=== PATIENT | male | born 1960 | race Caucasian/White ===

== ENCOUNTER 2017-06-28 07:32 | Emergency (ER) | payer OTHER ==
[2017-06-28 07:42] VITALS: TEMP 98.3; BMI 24.3
[2017-06-28] MEDS ORDERED: KETOROLAC TROMETHAMINE 60 MG/2 ML VIAL IM ONE (08:03)
[2017-06-28] MEDS ORDERED: CYCLOBENZAPRINE HCL 10 MG TABLET (FP) PO ONE (08:03)
--- NOTE | 2017-06-28 08:03 | PDOC ---
History of Present Illness - General Chief Complaint: Pain, Acute Stated Complaint: PAIN TO RIGHT SHOULDER Time Seen by Provider: 06/28/17 07:57 - History of Present Illness Initial Comments: 06/28/17 08:22 Chief complaint: Pain right shoulder History of present illness: Patient states that he twisted suddenly while lying on the couch last night, resulting in severe pain in the area of the right scapula and trapezius. Pain is severe and persistent. Review of systems: No fever/chills, URI symptoms, sore throat, cough, chest pain , shortness of breath, abdominal pain, nausea, vomiting, diarrhea, visual or focal neurologic symptoms, unsteadiness of gait. The patient has no pain that radiates to the arm and no distal numbness tingling pain or weakness of the right upper extremity Past medical history: High blood pressure maintained on medication Social/family history reviewed and noncontributory Physical exam: Alert and oriented well-developed well-nourished no acute distress cooperative Afebrile, vital signs stable Examination of the right shoulder and scapula reveals no point tenderness or deformity. There is full range of motion with minimal pain. Pulses are full to the right upper extremity. No distal sensory or motor deficits. The patient indicates pain over the right trapezius and the medial border of the right scapula. Neck is without point tenderness or deformity, full range of motion without pain Lungs are clear with full breath sounds throughout bilaterally. No chest wall rib cage tenderness or deformity CV regular without murmur rub or gallop pulses full and symmetric no JVD or edema no bruit Abdomen soft nontender without mass or organomegaly no CVAT Neurological intact. Cranial nerves intact. Strength full and symmetric. No focal sensory or motor deficits. Impression: Acute muscle strain, possible nerve impingement. Plan: X-ray and further orthopedic management depending on results. Symptomatic pain management. Past History - Past Medical History Allergies/Adverse Reactions: Allergies Allergy/AdvReac Type Severity Reaction Status Date / Time No Known Allergies Allergy Verified 06/28/17 07:35 Home Medications: Ambulatory Orders Amlodipine Besylate [Norvasc -] 10 mg PO DAILY 06/28/17 Cyclobenzaprine HCl [Flexeril] 10 mg PO TID #10 tablet 06/28/17 Ibuprofen 800 mg PO TID #15 tablet 06/28/17 Anemia: No Asthma: No Cancer: No Cardiac Disorders: No CVA: No COPD: No CHF: No Dementia: No Diabetes: No GI Disorders: No Disorders: No HTN: Yes Hypercholesterolemia: No Liver Disease: No Seizures: No Thyroid Disease: No - Surgical History Abdominal Surgery: No Appendectomy: No Cardiac Surgery: No Cholecystectomy: No Lung Surgery: No Neurologic Surgery: No Orthopedic Surgery: Yes (RIGHT SHOULDER ROTATOR 2005) - Suicide/Smoking/Psychosocial Hx Smoking History: Current every day smoker Have you smoked in the past 12 months: Yes Number of Cigarettes Smoked Daily: 12 Information on smoking cessation initiated: Yes 'Breaking Loose' booklet given: 06/28/17 Hx Alcohol Use: Yes (DAILY) Drug/Substance Use Hx: No Substance Use Type: Alcohol Hx Substance Use Treatment: No *Physical Exam - Vital Signs Last Vital Signs Temp Pulse Resp BP Pulse Ox 98.3 F 110 H 18 180/106 96 06/28/17 07:36 06/28/17 07:36 06/28/17 07:36 06/28/17 07:36 06/28/17 07:36 Medical Decision Making - Medical Decision Making 06/28/17 08:40 X-ray: Negative Patient much improved after the administration of Toradol and Flexeril. Continue nystatin medication and follow-up orthopedist in 2-3 days if symptoms persist. Fully ambulatory and in no significant pain or other distress upon discharge to follow-up as directed *DC/Admit/Observation/Transfer Diagnosis at time of Disposition: Musculoskeletal pain - Discharge Dispostion Disposition: HOME Condition at time of disposition: Improved Admit: No - Prescriptions Prescriptions: Cyclobenzaprine HCl [Flexeril] 10 mg PO TID #10 tablet Ibuprofen 800 mg PO TID #15 tablet - Referrals Referrals: Jasper Olson MD [Staff Physician] - 1 week - Patient Instructions Printed Discharge Instructions: How to Use a Sling, DI for Musculoskeletal Pain , Smoking Cessation - Post Discharge Activity Forms/Work/School Notes: Back to Work
[2017-06-28] MEDS ORDERED: CYCLOBENZAPRINE HCL 10 MG TABLET (FP) ONE (08:17)
[2017-06-28] MEDS ORDERED: KETOROLAC TROMETHAMINE 60 MG/2 ML VIAL ONE (08:17)
[2017-06-28 08:49] VITALS: BP 155/93; PULSE 81
== END 2017-06-28 09:08 | disposition home or self-care (01) ==
LOC: FER 07:32
PROC: 3E0233Z Introduction of Anti-inflammatory into Muscle, Percutaneous Approach (ICD-10-PCS; principal; 2017-06-28)
DX: M79.1 Myalgia (principal); F17.210 Nicotine dependence, cigarettes, uncomplicated; I10 Essential (primary) hypertension
CPT/HCPCS: 73030-TC-RT-FY; 99281-25

== ENCOUNTER 2021-04-10 08:28 | Emergency (ER) | payer OTHER ==
[2021-04-10 08:38] VITALS: BP 155/96; PULSE 114; TEMP 98.2; BMI 25.3
[2021-04-10] MEDS ORDERED: ACETAMINOPHEN 325 MG TABLET (FP) PO ONE (09:06)
[2021-04-10] MEDS ORDERED: ACETAMINOPHEN 325 MG TABLET (FP) ONE (09:11)
[2021-04-10] MEDS ORDERED: IBUPROFEN 400 MG TABLET (FP) PO ONE ×2 (09:49→10:06)
== END 2021-04-10 10:19 | disposition home or self-care (01) ==
LOC: FER 08:28
DX: M25.562 Pain in left knee (principal); X50.0XXA Overexertion from strenuous movement or load, initial encounter
CPT/HCPCS: 73560-TC-LT-FY; 82962; 99284-25

== ENCOUNTER 2022-06-03 06:05 | Day surgery (SDC) | payer OTHER ==
[2022-05-26 12:36] VITALS: BMI 24.3
[2022-06-03] MEDS ORDERED: CEFAZOLIN 2 GM in DEXTROSE 5%-WATER - 50 ML IVPB ONE (06:30)
[2022-06-03] MEDS ORDERED: SODIUM CHLORIDE 0.9% P/F 10 ML VIAL IJ ONE (07:23)
[2022-06-03] MEDS ORDERED: MIDAZOLAM HCL 2 MG/2 ML SINGLE DOSE VIAL ONE (07:23)
[2022-06-03] MEDS ORDERED: BUPIVACAINE HCL/PF 0.5% (5MG/ML) 10 ML VIAL ONE (07:23)
[2022-06-03] MEDS ORDERED: BUPIVACAINE LIPOSOME/PF (EXPAREL) 266 MG/20 ML VIAL ONE (07:23)
[2022-06-03] MEDS ORDERED: PROPOFOL 60 ML ONE (07:55)
[2022-06-03] MEDS ORDERED: KETOROLAC TROMETHAMINE 30 MG/1 ML VIAL ONE (07:56)
[2022-06-03] MEDS ORDERED: TRANEXAMIC ACID 1000 MG/10 ML VIAL ONE (07:56)
[2022-06-03] MEDS ORDERED: SUCCINYLCHOLINE CHLORIDE 200 MG/10 ML SYRINGE ONE (07:56)
[2022-06-03] MEDS ORDERED: ceFAZolin SODIUM 1 GM VIAL ONE (07:56)
[2022-06-03] MEDS ORDERED: DEXAMETHASONE SOD PHOSPHATE 4 MG/1 ML VIAL ONE (07:56)
[2022-06-03] MEDS ORDERED: ONDANSETRON 4 MG/2 ML VIAL ONE (07:56)
[2022-06-03] MEDS ORDERED: TRANEXAMIC ACID 1000 MG/10 ML VIAL IVPUSH ONE (08:00)
[2022-06-03] MEDS ORDERED: oxyCODONE HCL 5 MG TABLET PO PRN ×2 (10:01)
[2022-06-03] MEDS ORDERED: PROMETHAZINE HCL 25 MG/1 ML VIAL IVPUSH PRN (10:01)
[2022-06-03] MEDS ORDERED: ONDANSETRON 4 MG/2 ML VIAL IVPUSH PRN ×2 (10:01→10:05)
[2022-06-03] MEDS ORDERED: MAGNESIUM HYDROX 2400MG/30ML ORAL SUSPENSION 30 ML CUP PO PRN (10:05)
[2022-06-03] MEDS ORDERED: MAG HYDROX/AL HYDROX/SIMETH 30 ML UNIT-DOSE CUP PO PRN (10:05)
[2022-06-03] MEDS ORDERED: ACETAMINOPHEN 500 MG TABLET (FP) PO SCH (10:15)
[2022-06-03] MEDS ORDERED: LACTATED RINGERS SOLUTION 1,000 ML IV SCH (10:15)
[2022-06-03] MEDS ORDERED: SODIUM CHLORIDE 1,000 ML IV SCH (10:15)
[2022-06-03] MEDS: ACETAMINOPHEN 500 MG TABLET (FP) PO SCH ×2 (12:38→21:17)
[2022-06-03] MEDS: INSULIN SLIDING SCALE (NOVOLOG) 1 VIAL SQ SCH ×3 (12:46→21:39)
[2022-06-03] MEDS: CEFAZOLIN 1 GM in DEXTROSE 5%-WATER - 50 ML IVPB SCH ×2 (17:12→23:37)
[2022-06-03 20:52] VITALS: RESP 18
[2022-06-03] MEDS: SENNOSIDES/DOCUSATE COMBO (SENNA PLUS) TABLET (UD) PO SCH (21:34)
[2022-06-03] MEDS: ASPIRIN 81 MG CHEWABLE TABLETS PO SCH (21:34)
[2022-06-03] MEDS: CELECOXIB 200 MG CAPSULE PO SCH (21:34)
[2022-06-04] MEDS: ACETAMINOPHEN 500 MG TABLET (FP) PO SCH ×2 (02:59→11:40)
[2022-06-04] MEDS: INSULIN SLIDING SCALE (NOVOLOG) 1 VIAL SQ SCH ×2 (06:20→11:40)
[2022-06-04 08:45] LABS: HEMATOCRIT 42.2 % (35.4-49); HEMOGLOBIN 14.5 G/dL (11.7-16.9); MCH 32.6 pg (25.7-33.7); MCHC 34.4 g/dl (32.0-35.9); MEAN CELL VOLUME 94.9 fl (80-96); MEAN PLT VOLUME 9.1 fl (7.5-11.1); PLATELET COUNT 191.6 10^3/uL (134-434); RBC 4.45 10^6/uL (4.00-5.60); RDW 13.4 % (11.9-15.9)
[2022-06-04 08:47] LABS: CALCIUM 8.7 mg/dl (8.5-10); CREATININE 0.8 mg/dl (0.55-1.3)
[2022-06-04 09:12] VITALS: BP 139/78; PULSE 101; TEMP 98.5
[2022-06-04] MEDS: CELECOXIB 200 MG CAPSULE PO SCH (09:18)
[2022-06-04] MEDS: ASPIRIN 81 MG CHEWABLE TABLETS PO SCH (09:18)
[2022-06-04] MEDS: SENNOSIDES/DOCUSATE COMBO (SENNA PLUS) TABLET (UD) PO SCH (09:18)
[2022-06-04] MEDS ORDERED: LISINOPRIL 10 MG TABLET PO SCH (10:00)
[2022-06-04] MEDS ORDERED: PATIENT'S OWN MEDICATION (NON-FORMULARY) (Amlodipine Besylate/Benazepril [Amlodipine-Benaz PO SCH (10:00)
[2022-06-04] MEDS ORDERED: PANTOPRAZOLE 40 MG TABLET PO SCH (10:00)
[2022-06-04] MEDS ORDERED: glipiZIDE 5 MG TABLET (FP) PO ONE (10:00)
[2022-06-04] MEDS ORDERED: amLODIPine BESYLATE 5 MG TABLET (FP) PO SCH (10:00)
== END 2022-06-04 12:02 | disposition home or self-care (01) ==
LOC: FASUSAT 06:05 → FM/S 11:30 → FASUSAT 06-04 12:02
PROVIDERS: ATTEND Orthopaedic Surgery
PROC: 0SRD0J9 Replacement of Left Knee Joint with Synthetic Substitute, Cemented, Open Approach (ICD-10-PCS; principal; 2022-06-03 08:10)
DX: M17.12 Unilateral primary osteoarthritis, left knee (principal)
CPT/HCPCS: 27447; C1776; 36415; 73560-TC-LT-FY; 80048; 82962; 85027; 94760; 97010-GP; 97116-GP; 97161-GP; C1889

== ENCOUNTER 2023-04-28 08:29 | Emergency (ER) | payer OTHER ==
[2023-04-28] MEDS ORDERED: SODIUM CHLORIDE 0.9% 500 ML INFUS.BAG IV ONE ×2 (08:51→09:22)
[2023-04-28] MEDS ORDERED: ACETAMINOPHEN 1000 MG/100 ML BAG IVPB ONE (08:51)
[2023-04-28 09:09] VITALS: BP 149/92; PULSE 123; RESP 16; TEMP 98; BMI 50.1
[2023-04-28] MEDS ORDERED: ACETAMINOPHEN INJECTION 100 ML IVPB ONE (09:16)
[2023-04-28] MEDS ORDERED: IBUPROFEN 600 MG TABLET (FP) PO ONE (09:16)
[2023-04-28 09:55] LABS: HEMATOCRIT 47.9 % (35.4-49); HEMOGLOBIN 15.8 G/dL (11.7-16.9); MCH 29.6 pg (25.7-33.7); MEAN CELL VOLUME 89.7 fl (80-96); PLATELET COUNT 233.4 10^3/uL (134-434); RBC 5.34 10^6/uL (4.00-5.60); WHITE BLOOD COUNT 10.1 10^3/uL (4.0-10.8)
[2023-04-28 09:58] LABS: PLATELET ESTIMATE ADEQUATE
[2023-04-28 10:27] LABS: ALBUMIN 4.3 g/dl (3.4-5.0); BILIRUBIN,TOTAL 0.8 mg/dl (0.2-1); CALCIUM 10.4 mg/dl (8.5-10.1); CREATININE 0.9 mg/dl (0.6-1.3); POTASSIUM 4.2 mmol/L (3.5-5.1); TOT PROT 7.4 g/dl (6.4-8.2)
== END 2023-04-28 13:50 | disposition home or self-care (01) ==
LOC: FER 08:29
PROC: 3E033NZ Introduction of Analgesics, Hypnotics, Sedatives into Peripheral Vein, Percutaneous Approach (ICD-10-PCS; principal; 2023-04-28)
DX: R10.31 Right lower quadrant pain (principal); K57.92 Diverticulitis of intestine, part unspecified, without perforation or abscess without bleeding
CPT/HCPCS: 36415; 71046-TC-FY; 74177-TC; 80053; 81003; 81015; 82550; 83690; 84484; 85027; 87086; 93005; 99285-25; Q9967

== ENCOUNTER 2023-07-14 07:47 | Emergency (ER) | payer OTHER ==
[2023-07-14] MEDS: MAG HYDROX/AL HYDROX/SIMETH 30 ML UNIT-DOSE CUP PO ONE (08:15)
[2023-07-14] MEDS: SODIUM CHLORIDE 0.9% 500 ML INFUS.BAG IV ONE (08:15)
[2023-07-14] MEDS: ONDANSETRON 4 MG/2 ML VIAL IVPUSH ONE (08:25)
[2023-07-14 08:27] VITALS: RESP 18; TEMP 98.5; BMI 24.3
[2023-07-14] MEDS: FAMOTIDINE 20 MG/50 ML IVPB 20 MG/50 ML MG IVPB ONE (08:30)
[2023-07-14] MEDS ORDERED: FAMOTIDINE 20 MG/50 ML IVPB 20 MG/50 ML MG IVPB ONE (08:35)
[2023-07-14] MEDS ORDERED: MAG HYDROX/AL HYDROX/SIMETH 30 ML UNIT-DOSE CUP ONE (08:35)
[2023-07-14] MEDS ORDERED: ONDANSETRON 4 MG/2 ML VIAL ONE (08:35)
[2023-07-14 09:05] LABS: HEMATOCRIT 50.9 % (35.4-49); HEMOGLOBIN 16.5 G/dL (11.7-16.9); MCH 29.5 pg (25.7-33.7); MCHC 32.5 g/dl (32.0-35.9); MEAN CELL VOLUME 90.8 fl (80-96); MEAN PLT VOLUME 8.9 fl (7.5-11.1); PLATELET COUNT 253.2 10^3/uL (134-434); RBC 5.61 10^6/uL (4.00-5.60); RDW 15.1 % (11.9-15.9)
[2023-07-14 09:09] LABS: PLATELET ESTIMATE ADEQUATE
[2023-07-14 09:14] LABS: ALBUMIN 4.4 g/dl (3.4-5.0); BILIRUBIN,TOTAL 0.5 mg/dl (0.2-1); CALCIUM 10.2 mg/dl (8.5-10.1); CREATININE 0.7 mg/dl (0.6-1.3); TOT PROT 7.9 g/dl (6.4-8.2)
[2023-07-14 09:16] LABS: POTASSIUM 4.2 mmol/L (3.5-5.1)
[2023-07-14] MEDS ORDERED: amLODIPine BESYLATE 5 MG TABLET (FP) ONE (09:43)
[2023-07-14] MEDS ORDERED: LISINOPRIL 10 MG TABLET ONE (09:43)
[2023-07-14] MEDS: amLODIPine BESYLATE 5 MG TABLET (FP) PO ONE (09:52)
[2023-07-14] MEDS: LISINOPRIL 10 MG TABLET PO ONE (09:52)
[2023-07-14] MEDS: glipiZIDE 5 MG TABLET (FP) PO ONE (09:52)
[2023-07-14 10:18] VITALS: BP 122/79; PULSE 82
== END 2023-07-14 10:24 | disposition home or self-care (01) ==
LOC: FER 07:47
PROC: 3E033GC Introduction of Other Therapeutic Substance into Peripheral Vein, Percutaneous Approach (ICD-10-PCS; principal; 2023-07-14)
PROC: 3E033GC Introduction of Other Therapeutic Substance into Peripheral Vein, Percutaneous Approach (ICD-10-PCS; 2023-07-14)
DX: R10.10 Upper abdominal pain, unspecified (principal); R11.10 Vomiting, unspecified
CPT/HCPCS: 36415; 80053; 83690; 85027; 99284-25

== ENCOUNTER 2023-07-20 07:41 | Emergency (ER) | payer OTHER ==
[2023-07-20 07:48] VITALS: BP 131/88; RESP 16; TEMP 98.6; BMI 24.3
[2023-07-20] MEDS ORDERED: KETOROLAC TROMETHAMINE 30 MG/1 ML VIAL ONE (08:13)
[2023-07-20] MEDS: KETOROLAC TROMETHAMINE 30 MG/1 ML VIAL IM ONE (08:18)
[2023-07-20 08:30] VITALS: PULSE 109
== END 2023-07-20 08:30 | disposition home or self-care (01) ==
LOC: FER 07:41
PROC: 3E0233Z Introduction of Anti-inflammatory into Muscle, Percutaneous Approach (ICD-10-PCS; principal; 2023-07-20)
DX: M54.2 Cervicalgia (principal); M54.6 Pain in thoracic spine; M25.511 Pain in right shoulder; M62.838 Other muscle spasm
CPT/HCPCS: 99284-25

== ENCOUNTER 2023-09-22 08:34 | Emergency (ER) | payer OTHER ==
[2023-09-22 08:45] VITALS: BP 138/80; PULSE 103; RESP 20; TEMP 98.2; BMI 24.3
[2023-09-22] MEDS ORDERED: FAMOTIDINE 20 MG/50 ML IVPB 20 MG/50 ML MG IVPB ONE (09:48)
[2023-09-22] MEDS: FAMOTIDINE 20 MG/50 ML IVPB 20 MG/50 ML MG IVPB ONE (10:01)
[2023-09-22] MEDS: SODIUM CHLORIDE 1,000 ML IV STA (10:01)
[2023-09-22 10:26] LABS: BASO % 0.5 % (0-2.0); EOS % 0.9 % (0-4.5); HEMATOCRIT 46.1 % (35.4-49); LYMPH % 12.2 % (8-40); MCH 26.7 pg (25.7-33.7); MCHC 32.6 g/dl (32.0-35.9); MEAN PLT VOLUME 8.8 fl (7.5-11.1); MONO % 13.1 % (3.8-10.2); NEUT % 73.3 % (42.8-82.8); PLATELET COUNT 315 10^3/uL (134-434); RBC 5.62 M/mm3 (4.00-5.60); RDW 16.4 % (11.9-15.9); WHITE BLOOD COUNT 10.9 K/mm3 (4.0-10.0)
[2023-09-22 10:43] LABS: POTASSIUM 4.6 mmol/L (3.5-5.1)
[2023-09-22 10:45] LABS: ALBUMIN 3.8 g/dl (3.4-5.0); CALCIUM 10.6 mg/dL (8.5-10.1)
[2023-09-22 10:46] LABS: BLOOD UREA NITROGEN 13.8 mg/dL (7-18); MAGNESIUM 2.5 mg/dL (1.8-2.4)
[2023-09-22 10:50] LABS: BILIRUBIN,TOTAL 0.6 mg/dL (0.2-1); TOT PROT 8.2 g/dl (6.4-8.2)
[2023-09-22] MEDS: LACTATED RINGERS SOLUTION 1,000 ML/1,000 ML INFUS.BAG IV STA (11:45)
[2023-09-22] MEDS: DEXTROSE 5%-LACTATED RINGERS 1,000 ML IV SCH (15:03)
== END 2023-09-22 16:02 | disposition left against medical advice (07) ==
LOC: JER 08:34
PROC: 3E033GC Introduction of Other Therapeutic Substance into Peripheral Vein, Percutaneous Approach (ICD-10-PCS; principal; 2023-09-22)
PROC: 3E0337Z Introduction of Electrolytic and Water Balance Substance into Peripheral Vein, Percutaneous Approach (ICD-10-PCS; 2023-09-22)
PROC: 3E0337Z Introduction of Electrolytic and Water Balance Substance into Peripheral Vein, Percutaneous Approach (ICD-10-PCS; 2023-09-22)
DX: K85.20 Alcohol induced acute pancreatitis without necrosis or infection (principal); F10.988 Alcohol use, unspecified with other alcohol-induced disorder; R10.13 Epigastric pain; K86.3 Pseudocyst of pancreas
CPT/HCPCS: 36415; 71046-TC-FY; 74177-TC; 80053; 83690; 83735; 84484; 85025; 93005; 93010; 99285-25; Q9967

== ENCOUNTER 2023-10-18 09:22 | Emergency (ER) | payer OTHER ==
[2023-10-18 09:45] VITALS: TEMP 98.9; BMI 24.3
[2023-10-18] MEDS ORDERED: ASPIRIN 81 MG CHEWABLE TABLETS ONE (10:22)
[2023-10-18] MEDS: ASPIRIN 81 MG CHEWABLE TABLETS PO ONE (10:28)
[2023-10-18] MEDS ORDERED: HEPARIN NA (PORCINE) 5,000 UNITS/ML 1ML VIAL IVPUSH ONE (10:41)
[2023-10-18 10:44] VITALS: BP 117/78
[2023-10-18 10:48] LABS: HEMATOCRIT 51.1 % (35.4-49); HEMOGLOBIN 15.9 G/dL (11.7-16.9); MCH 25.3 pg (25.7-33.7); MCHC 31.1 g/dl (32.0-35.9); MEAN CELL VOLUME 81.3 fl (80-96); MEAN PLT VOLUME 9.6 fl (7.5-11.1); PLATELET COUNT 218.1 10^3/uL (134-434); RBC 6.28 10^6/uL (4.00-5.60); RDW 17.2 % (11.9-15.9)
[2023-10-18] MEDS: HEPARIN NA (PORCINE) 5,000 UNITS/ML 1ML VIAL IVPUSH PRN (10:50)
[2023-10-18 11:01] LABS: ALBUMIN 4.4 g/dl (3.4-5.0); ALK PHOS 64 U/L (45-117); ANION GAP 11 mmol/L (4-13); BILIRUBIN,TOTAL 0.5 mg/dl (0.2-1); CALCIUM 10.7 mg/dl (8.5-10.1); CHLORIDE 101 mmol/L (98-107); CO2 25 mmol/L (21-32); CREATININE 0.8 mg/dl (0.6-1.3); GLUCOSE,RANDOM 245 mg/dl (74-106); POTASSIUM 4.1 mmol/L (3.5-5.1); SGOT/AST 55 U/L (15-37); SGPT/ALT 30 U/L (7-52); SODIUM 137 mmol/L (136-145); TOT PROT 7.8 g/dl (6.4-8.2)
[2023-10-18 11:04] VITALS: PULSE 113; RESP 28
[2023-10-18 11:37] LABS: PLATELET ESTIMATE ADEQUATE
[2023-10-18 11:38] LABS: ANISOCYTOSIS 1+; MACROCYTOSIS 1+
== END 2023-10-18 11:13 | disposition short-term general hospital (02) ==
LOC: FER 09:22
DX: I21.3 ST elevation (STEMI) myocardial infarction of unspecified site (principal); I10 Essential (primary) hypertension; R07.9 Chest pain, unspecified; M79.10 Myalgia, unspecified site; J02.9 Acute pharyngitis, unspecified; Z20.822 Contact with and (suspected) exposure to COVID-19
CPT/HCPCS: 0241U-QW; 36415; 71045-TC-FY; 80053; 82550; 82553; 84484; 85027; 93005; 99285-25; J1644

== ENCOUNTER 2023-10-23 16:41 | Emergency (ER) | payer OTHER ==
[2023-10-23 16:57] VITALS: BP 133/88; PULSE 104; RESP 18; TEMP 98; BMI 21.9
[2023-10-23] MEDS ORDERED: OXYMETAZOLINE 0.05% NASAL SOLUTION 15 ML BOTTLE NS ONE (17:50)
[2023-10-23] MEDS: OXYMETAZOLINE 0.05% NASAL SOLUTION 15 ML BOTTLE NS ONE (17:55)
== END 2023-10-23 18:29 | disposition home or self-care (01) ==
LOC: FER 16:41
DX: R04.0 Epistaxis (principal)
CPT/HCPCS: 99283-25